=== PATIENT | female | born 1955 | race Caucasian/White ===

== ENCOUNTER 2025-02-19 11:04 | Outpatient (AMB) | payer MEDICARE, SELFPAY ==
--- NOTE | 2025-02-19 11:08 | A.OFFVIS_ITS ---
Intake Visit Reasons: Followup Allergies fentanyl (FENTANYL) Allergy (Severe, Unverified 04/07/20 17:21) SEIZURES hydromorphone (From Dilaudid) Allergy (Mild, Unverified 04/07/20 17:21) PYSCOTIC EPISODE morphine (Morphine) Allergy (Mild, Unverified 04/07/20 17:21) PSYCOTIC EPISODE HPI Comments Details: She tried hydroxyzine at bedtime for a few days which seemed to help and was able to sleep okay at night up until 1 week ago, having some trouble sleeping through the night. Having some anxiety which she describes as sense of fear and does not want to do anything. Triggers some headaches, uses butalbital as needed which helps. Having some issues with new office space. She has still not been able to find a therapist. She did EMDR in the past which helped and was interested in trying this again. Her 43-year-old son-in-law in sleep in 10/2024. Lack of sleep is trigger for depression. Has not been able to find therapist. She is only taking lorazepam when needed as she does not like how she feels the next day. Practicing sleep hygiene. She tried trazodone for sleep in the past with side effects. She was also dealing with body pains and was seeing first front ventilator. She had asked about low dose naltrexone, but was offered suboxone or Tramadol instead which she was not interested in. Feels memory concerns are related to anxiety. Has some trouble with word recall and says she has never been good with names. Lives alone, manages her own finances without any issues. Has a lot on her mind. 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 Lot of anxiety and dealing with some grief. Periods of shaking and crying. Her 15-year-old dog passed. She feels lonely. She has daughter with history of opioid use disorder who is to man with same history. She uses lorazepam sparingly for bad anxiety or if unable to sleep. She has history of depression since age 13 and had TMS before COVID. She also had EMDR therapy in the past. She is involved with her evangelical community and prays daily. She has tried multiple medications without results or side effects. Few migraines, uses butalbital as needed which helps. In 04/2024, she forgot to pay bills on 04/21 as she usually does, but paid it on 04/25. Stress makes word finding difficulties worse. Has never been good with names. 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 Depressed. Has tried many anti- depressants in the past with side effects. Alone for 20+ years. No real friends that are available. Sees senior animal trainer once a week. Doing behavior modification. Was concerned about AD and dementia, noting word searching difficulties. Migraines may occur for 2-3 weeks and then nothing for months. Feels tired. Butalbital helps left sided migraine. Neck pain since 10/[address] Ko. C spine shows degen disc disease without cord compression or HNP. Unable to tolerate any SSRIs, side effects with tricyclics. Tried amitriptyline, gabapentin, Cymbalta, and Lyrica with either no success or side effects. Also had bad side effects with Savella. Says she is sensitive to all antidepressants. Had neuropsych testing that was c/w severe depression. Had TMJ pain and clenches a lot. Cardiac work up negative. [facility] Medical History (Updated 02/19/25 @ 11:31 by Adia Teran, KADEN) Cerebral microvascular disease Chronic migraine w/o aura w/o status migrainosus, not intractable Chronic fatigue Seizure disorder Fibromyalgia Migraine Insomnia Results Reviewed Results Reviewed: 07/29/12 awake and sleep EEG WNL NCV/EMG UE 01/13/13 NORMAL MOTOR AND SENSORY NERVE CONDUCTION VELOCITIES IN THE UPPER EXTREMITIES. NORMAL EMG IN THE LEFT C5-T1 INNERVATED MUSCLES. 07/18/20 MRI brain shows minimal progression of microvascular changes and 6x9mm pineal cyst. EEG unremarkable. Assessment & Plan Assessment & Plan (1) Chronic migraine w/o aura w/o status migrainosus, not intractable: Code(s): G43.709 - Chronic migraine without aura, not intractable, without status migrainosus Category: Medical Plan: Continue [id number] [id number] 1 capsule as needed q8h for headache #20 for 30 days. (2) Insomnia: Code(s): G47.00 - Insomnia, unspecified Category: Medical Qualifiers: Insomnia type: unspecified Qualified Code(s): G47.00 - Insomnia, un specified Plan: Continue hydroxyzine 10mg 1/2 - 1 tablet as needed at bedtime (3) Anxiety: Code(s): F41.9 - Anxiety disorder, unspecified Category: Medical (4) Cerebral microvascular disease: Code(s): I67.89 - Other cerebrovascular disease Category: Medical (5) Fibromyalgia: Code(s): M79.7 - Fibromyalgia Category: Medical Plan For chronic migraine: has used multiple prophylactic meds and is intolerant to many including amitriptyline, gabapentin, topiramate, verapamil For FM tried: gabapentin, Lyrica, Cymbalta, Savella with side effects. Coding Level of Care Code Est Pt Level 4 (34924) Diagnoses Chronic migraine w/o aura w/o status migrainosus, not intractable G43.709 Insomnia, unspecified type G47.00 Insomnia type: unspecified Anxiety F41.9 Cerebral microvascular disease I67.89 Fibromyalgia M79.7
--- OUTSIDE RECORDS SUMMARY | 2025-02-19 11:13 | XMS_ITS | Clinical Summary ---
Author Organization [facility] Address [address] [place] [address] Care Team Providers Care It Portfolio Manager Name Role Phone Kiara Kerns MD Primary Care Provider [phone] Allergies Active Allergy Reactions Criticality Noted Date Comments Fentanyl Other (See Comments) High 10/09/2017 Hydromorphone Other (See Comments) High 10/09/2017 Post surgical psychosis Morphine Other (See Comments) High 10/09/2017 Post surgical pyschosis Medications Medication Sig Dispensed Refills Start Date End Date Status verapamil (CALAN-SR) 120 MG CR tablet Take by mouth. 0 Acti ve triazolam (HALCION) 0.25 MG tablet Take by mouth. 0 Active potassium chloride ER (K-DUR) 10 MEQ tablet Take by mouth. 0 Active montelukast (SINGULAIR) 5 MG chewable tablet Chew by mouth. 0 Activ e medroxyPROGESTERone (PROVERA) 10 MG tablet Take by mouth. 0 Active hydroCHLOROthiazide (HYDRODIURIL) 50 MG tablet Take by mouth. 0 Active cyclobenzaprine (FLEXERIL) 10 MG tablet Take by mouth. 0 Active clonazePAM (KLONOPIN) 0.5 MG tablet Take by mouth. 0 Active albuterol (PROAIR HFA) 108 (90 Base) MCG/ACT inhaler Inhale into the lungs. 0 Active Hospital, Clinic, or Other Facility Administered Medication Ordered Dose Route Frequency Start Date End Date Status methylPREDNISolone acetate (DEPO-MEDROL) injection 40 mgIndications:Shoulder impingement syndrome, left,Chronic left shoulder pain 40 mg IX Once 10/15/2017 Active Family History Medical History Relation Name Comments Heart disease Father Hypertension Father Heart disease Mother Hypertension Mother Relation Name Status Comments Father Mother Social History Tobacco Use Types Packs/Day Years Used Date Smoking Tobacco: Never Assessed Sex and Gender Information Value Date Recorded Sex Assigned at Not on file Gender Identity Not on file Sexual Orientation Not on file Job Start Date Occupation Industry Not on file Not on file Not on file Last Filed Vital Signs Vital Sign Reading Time Taken Comments Blood Pressure - - Pulse - - Temperature - - Respiratory Rate - - Oxygen Saturation - - Inhaled Oxygen Concentration - - Weight 68.9 kg (152 lb) 10/15/2017 9:13 AM EDT Height 162.6 cm (5' 4 ) 10/15/2017 9:13 AM EDT Body Mass Index 26.09 10/15/2017 9:13 AM EDT Plan of Treatment Health Maintenance Due Date Last Done Comments Hepatitis C Screening 1955 COVID-19 Vaccine (#1) 03/05/1956 Depression Screening 1965 Preventative Health Evaluation 1971 DTap / Tdap / Td (1 - Tdap) 1972 Colon Cancer Screening (Colonoscopy) 1998 Breast Cancer Screening (Mammogram) 2003 Shingrix-Zoster Vaccine (1 of 2) 2003 Fall Risk Assessment 2018 Osteoporosis Screening (DEXA Scan) 2018 Pneumococcal Vaccine (1 of 1 - PCV) 2018 Influenza Vaccine (#1) 2025 RSV Adult > 60+ Yrs or Pregn ant (1 - 1-dose 75+ series) 2028 Hepatitis B Vaccines Aged Out No long er eligible based on patient's age to complete this topic RSV Ped < 20 months Aged Out No longe r eligible based on patient's age to complete this topic Care Teams It Portfolio Manager Relationship Specialty Start Date End Date Kiara Kerns MD [address] [place] [address] PCP - General Family Medicine 08/19/17
--- OUTSIDE RECORDS SUMMARY | 2025-02-19 11:13 | XMS_ITS | Encounter Summary ---
Author Organization [facility], Address [address] [place] [address] Phone Care Team Providers Care Associate Product Integrity Engineer Name Role Phone Itzel Nagel DO Primary Care Pro vider Encounter Details Date Type Department Care Team (Late st Contact Info) Description 08/03/2021 Documentation Only [facility], [address] [place] [address] Adalberto Whtiaker MD [address] [place] [address] Social History Tobacco Use Types Packs/Day Years Used Date Smoking Tobacco: Never Alcohol Use Standard Drinks/Week Comments Never 0 (1 standard drink = 0.6 oz pur e alcohol) Comments Unknown Sex and Gender Information Value Date Recorded Sex Assigned at Not on file Legal Sex Female 5:00 PM EST Gender Identity Not on file Sexual Orientation Not on file Occupation Industry Job Start Date Job End Date Professor Not on file Not on file Not on file documented as of this encounter Plan of Treatment Not on file documented as of this encounter Visit Diagnoses Not on filedocumented in this encounter Care Teams Associate Product Integrity Engineer Relationship Specialty Start Date End Date Itzel Nagel DO PCP - General Internal Medicine 10/09/21 documented as of this encounter
--- OUTSIDE RECORDS SUMMARY | 2025-02-19 11:13 | XMS_ITS | Patient Health Record ---
Author Organization [facility] Address [address] [place] [address] Care Team Providers Care Cartography Technician Name Role Phone JERROD FIERRO Primary Care Provider [phone] Allergies Allergen (clinical drug ingredient) Drug/Non Drug Allergy documented on EMR Reaction Allergy Type Onset Date Status fentanyl Fentanyl Unknown Drug Allergy Active morphine Morphine Unknown Drug Allergy Active Substance with 6-alccdzz-1-methylgl utaryl-coenzyme A reductase inhibitor mechanism of action (substance) Statins muscle aches and pains Drug Allergy Active Results Component Value Reference Range Notes Comp. Metabolic Panel [id number] Reviewed date:10/01/2024 05:03:00 PM Interpretation: Performing Lab:[facility], [address] [facility], [place], Phone - [phone], Director - Sarai Notes/Report: Glucose 88 70-99 mg/dL BUN 17 8-27 mg/dL Creatinine 0.68 0.57-1.00 mg/dL eGFR 93 >59 mL/min/1.73 BUN/Creatinine Ratio 25 12-28 Sodium 140 134-144 mmol/L Potassium 4.1 3.5-5.2 mmol/L Chloride 101 96-106 mmol/L Carbon Dioxide, Total 23 20-29 mmol/L Calcium 9.9 8.7-10.3 mg/dL Protein, Total 6.9 6.0-8.5 g/dL Albumin 4.4 3.8-4.8 g/dL Globulin, Total 2.5 1.5-4.5 g/dL Bilirubin, Total 0.4 0.0-1.2 mg/dL Alkaline Phosphatase 93 44-121 IU/L AST (SGOT) 25 0-40 IU/L ALT (SGPT) 25 0-32 IU/L Lipid Panel-[id number] Reviewed date:10/01/2024 05:02:58 PM Interpretation: Performing Lab:[facility] [place], [address] [facility], Phone - [phone], Director - Sarai Notes/Report: Cholesterol, Total 181 100-199 mg/dL Triglycerides 58 0-149 mg/dL HDL Cholesterol 49 >39 mg/dL VLDL Cholesterol Heriberto 11 5-40 mg/dL LDL Chol Calc (NIH) 121 0-99 mg/dL Albumin/Creatinine Ratio,Uri ne-[id number] Reviewed date:10/01/2024 05:02:53 PM Interpretation: Performing Lab:[facility] [place], [address] [facility], [place], Phone - [phone], Director - Sarai Notes/Report: Creatinine, Urine TNP specimen for the requested testing. The following test(s) were not performed: Test not performed. Patient was unable to provide a self-collected Lipoprotein (a)-[id number] Reviewed date:10/01/2024 05:03:09 PM Interpretation: Performing Lab:[facility] [place], [address] [place] [address], Phone - [phone], Director - Sarai Notes/Report: Lipoprotein (a) 72.3 <75.0 nmol/L Note: Values greater than or equal to 75.0 nmol/L may indicate an independent risk factor for CHD, but must be evaluated with caution when applied to non- populations due to the influence of genetic factors on Lp(a) across ethnicities. Request Problem TNP Test not performed. Patient was unable to provide a self-collected specimen for the requested testing. The following test(s) were not performed: TEST: [id number] Albumin/Creatinine Ratio,Urine Reason For Referral Reason [facility]- for low infla mmatory diet Diagnosis 1 Gastro-esophageal re flux disease without esophagitis (K21.9) Referral Organization [facility] Referring Provider First Name JERROD Referring Provider Last Name SRI Referring Provider Speciality Internal M edicine Referred Provider Specialty Dietitian General Notes Referral faxed. Plea se call patient to schedule. Referral Priority Routine Medications Medication SIG (Take, Route, Frequency, Duration) Notes Start Date End Date Status Aspirin 81 MG 1 tablet Orally Once a day Active Albuterol Sulfate HFA 108 (9 0 Base) MCG/ACT 1 puff as needed Inhalation every 4 hrs Active valACYclovir HCl 500 MG 1 tablet Orally 2 TIMES A DAY; Duration: 10 days Active Ativan 0.5 MG 1 tablet at bedtime as needed Orally Once a day Active Butalbital-APAP prn Acti ve Losartan Potassium 25 mg 1 tablet Orally Once a day Active Cyclobenzaprine HCl 10 MG 1 tablet at be dtime as needed Orally Once a day; Duration: 30 days Active Zetia 10 MG 1 tablet Orally Once a day Active Verapamil HCl 120 MG 1 tablet Orally Thr ee times a day Active Problems Problem Type SNOMED Code ICD Code Onset Dates Problem Status W/U Status Risk Notes Problem Genital herpes simplex (18000613) Herpesviral infection of urogenital system, unspecified (A60.00) Active confirmed Problem Mixed hyperlipidemia (112028593) Mixed hyperlipidemia (E78.2) Active confirmed Problem Generalized anxiety disorder (12570585) Generalized anxiety disorder (F41.1) Active confirmed Problem Chronic migraine without aura, non-refractory (disorder) (998754714782306) Migraine without aura, not intractable, without status migrainosus (G43.009) Active confirmed Problem Insomnia (943107383) Insomnia, unspecified (G47.00) Active confirmed Problem Mild intermittent asthma (323946168) Mild intermittent asthma, uncomplicated (J45.20) Active confirmed Problem Gastro-esophageal reflux disease without esophagitis (039035960) Gastro-esophageal reflux disease without esophagitis (K21.9) Active confirmed Problem Polyarthritis (661953601) 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) Active confirmed Problem Fibromyalgia (453854769) Fibromyalgia (M79.7) Active confirmed Problem Heart murmur (finding) (61524363) Cardiac murmur, unspecified (R01.1) Active confirmed Problem Personal history of primary malignant neoplasm of breast (873891940) Personal history of malignant neoplasm of breast (Z85.3) Active confirmed Problem Essential hypertension (49063454) Essential (primary) hypertension (I10) Active confirmed Vital Signs Heart Rate 81 /min 10/07/2024 Temperature 96.1 degrees Fahrenheit 10/07/2024 Oximetry 99 % 10/07/2024 Blood pressure diastolic 70 mm Hg 10/07/2024 Height 5'3'' in 10/07/2024 Blood pressure systolic 140 mm Hg 10/07/2024 Weight 144.0 lbs 10/07/2024 BMI 25.51 kg/m2 10/07/2024 Encounters Encounter Location Date Provider Diagnosis [address] [address] 06/11/2024 JERROD FIERRO Essential (primary) hypertension I10 ; Mixed hyperlipidemia E78.2 ; Migraine without aura, not intractable, without status migrainosus G43.009 ; Gastro-esophageal reflux disease without esophagitis K21.9 ; Generalized anxiety disorder F41.1 ; Polyp of colon K63.5 ; Mild intermittent asthma, uncomplicated J45.20 ; Herpesviral infection of urogenital system, unspecified A60.00 ; Insomnia, unspecified G47.00 ; Other polyosteoarthritis M15.8 and Fibromyalgia M79.[address] [address] 10/07/2024 JERROD FIERRO Mixed hyperlipidemia E78.2 ; Essential (primary) hypertension I10 ; Migraine without aura, not intractable, without status migrainosus G43.009 ; Gastro-esophageal reflux disease without esophagitis K21.9 ; Generalized anxiety disorder F41.1 ; Polyp of colon K63.5 ; Mild intermittent asthma, uncomplicated J45.20 ; Herpesviral infection of urogenital system, unspecified A60.00 ; Insomnia, unspecified G47.00 ; Other polyosteoarthritis M15.8 and Fibromyalgia M79.[address] [address] 07/17/[address] [address] 07/30/[address] [address] 01/11/2025 JERROD FIERRO Assessments Encounter Date Diagnosis (ICD Code) Assessment Notes Treatment Notes Treatment Clinical Notes Section Notes 06/11/2024 Mixed hyperlipidemia (ICD-10 - E78.2) Ms Perea is 68 years old pleasant lady with hypertension, hyperlipidemia, GERD, generalized anxiety disorder/depres rafaela, migraine headaches, seizure disorder as a child, breast cancer and bilateral mastectomy, multiple joint osteoarthritis, herpes genitalia, fibromyalgia is here to establish care. Plan is as follows Hypertension. Blood pressure is well controlled on losartan 25 mg daily. Check renal functions, urine for microalbumin and electrolytes. Hyperlipidemia. She has extensive cardiac workup done by [facility] cardiology Dr. Zaragoza and she also had a second opinion from Dr. Costello at [facility]. She was started on Zetia 10 mg for hyperlipidemia because she could not tolerate statins. Mitral valve prolapse. She is stable at this point and to follow with cardiology. GERD. Continue on current regimen. Diet restrictions discussed Migraine headaches. They are pretty much well controlled and she is currently on verapamil 120 mg which helps with blood pressure and also with migraine headaches Mild persistent asthma/seasonal allergies. She uses albuterol inhaler as needed Generalized anxiety disorder/depres rafaela/insomnia. She uses lorazepam 0.5 mg sparingly as needed and according to patient she takes 3 tablets a month Herpes genitalia. She uses valacyclovir 500 mg. Multiple joint osteoarthritis. She follows up with orthopedics and recently had intra-articular injection in bilateral first metacarpal joints. Fibromyalgia. 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 She is up-to-date on health specific screening. Screening blood work ordered before next appointment. 06/11/2024 Essential (primary) hypertension (ICD-10 - I10) Ms Perea is 68 years old pleasant lady with hypertension, hyperlipidemia, GERD, generalized anxiety disorder/depres rafaela, migraine headaches, seizure disorder as a child, breast cancer and bilateral mastectomy, multiple joint osteoarthritis, herpes genitalia, fibromyalgia is here to establish care. Plan is as follows Hypertension. Blood pressure is well controlled on losartan 25 mg daily. Check renal functions, urine for microalbumin and electrolytes. Hyperlipidemia. She has extensive cardiac workup done by [facility] cardiology Dr. Zaragoza and she also had a second opinion from Dr. Costello at [facility]. She was started on Zetia 10 mg for hyperlipidemia because she could not tolerate statins. Mitral valve prolapse. She is stable at this point and to follow with cardiology. GERD. Continue on current regimen. Diet restrictions discussed Migraine headaches. They are pretty much well controlled and she is currently on verapamil 120 mg which helps with blood pressure and also with migraine headaches Mild persistent asthma/seasonal allergies. She uses albuterol inhaler as needed Generalized anxiety disorder/depres rafaela/insomnia. She uses lorazepam 0.5 mg sparingly as needed and according to patient she takes 3 tablets a month Herpes genitalia. She uses valacyclovir 500 mg. Multiple joint osteoarthritis. She follows up with orthopedics and recently had intra-articular injection in bilateral first metacarpal joints. Fibromyalgia. 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 She is up-to-date on health specific screening. Screening blood work ordered before next appointment. 10/07/2024 Mixed hyperlipidemia (ICD-10 - E78.2) Ms Perea is 68 years old pleasant lady with hypertension, hyperlipidemia, GERD, generalized anxiety disorder/depres rafaela, migraine headaches, seizure disorder as a child, breast cancer and bilateral mastectomy, multiple joint osteoarthritis, herpes genitalia, fibromyalgia is here for follow-up on blood work.. Plan is as follows Hypertension. Blood pressure is well controlled on losartan 25 mg daily. Check renal functions, urine for microalbumin and electrolytes. Hyperlipidemia. She has extensive cardiac workup done by [facility] cardiology Dr. Zaragoza and she also had a second opinion from Dr. Costello at [facility]. She was started on Zetia 10 mg for hyperlipidemia because she could not tolerate statins. Her LDL is 121 and it should be under 99. Mitral valve prolapse. She is stable at this point and to follow with cardiology. GERD. Continue on current regimen. Diet restrictions discussed Migraine headaches. They are pretty much well controlled and she is currently on verapamil 120 mg which helps with blood pressure and also with migraine headaches Mild persistent asthma/seasonal allergies. She uses albuterol inhaler as needed Generalized anxiety disorder/depres rafaela/insomnia. She uses lorazepam 0.5 mg sparingly as needed and according to patient she takes 3 tablets a month Herpes genitalia. She uses valacyclovir 500 mg. Multiple joint osteoarthritis. She follows up with orthopedics and recently had intra-articular injection in bilateral first metacarpal joints. Fibromyalgia. 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 She is up-to-date on health specific screening. Screening blood work reviewed and questions answered 10/07/2024 Essential (primary) hypertension (ICD-10 - I10) Ms Perea is 68 years old pleasant lady with hypertension, hyperlipidemia, GERD, generalized anxiety disorder/depres rafaela, migraine headaches, seizure disorder as a child, breast cancer and bilateral mastectomy, multiple joint osteoarthritis, herpes genitalia, fibromyalgia is here for follow-up on blood work.. Plan is as follows Hypertension. Blood pressure is well controlled on losartan 25 mg daily. Check renal functions, urine for microalbumin and electrolytes. Hyperlipidemia. She has extensive cardiac workup done by [facility] cardiology Dr. Zaragoza and she also had a second opinion from Dr. Costello at [facility]. She was started on Zetia 10 mg for hyperlipidemia because she could not tolerate statins. Her LDL is 121 and it should be under 99. Mitral valve prolapse. She is stable at this point and to follow with cardiology. GERD. Continue on current regimen. Diet restrictions discussed Migraine headaches. They are pretty much well controlled and she is currently on verapamil 120 mg which helps with blood pressure and also with migraine headaches Mild persistent asthma/seasonal allergies. She uses albuterol inhaler as needed Generalized anxiety disorder/depres rafaela/insomnia. She uses lorazepam 0.5 mg sparingly as needed and according to patient she takes 3 tablets a month Herpes genitalia. She uses valacyclovir 500 mg. Multiple joint osteoarthritis. She follows up with orthopedics and recently had intra-articular injection in bilateral first metacarpal joints. Fibromyalgia. 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 She is up-to-date on health specific screening. Screening blood work reviewed and questions answered 10/07/2024 Migraine without aura, not intractable, without status migrainosus (ICD-10 - G43.009) Ms Perea is 68 years old pleasant lady with hypertension, hyperlipidemia, GERD, generalized anxiety disorder/depres rafaela, migraine headaches, seizure disorder as a child, breast cancer and bilateral mastectomy, multiple joint osteoarthritis, herpes genitalia, fibromyalgia is here for follow-up on blood work.. Plan is as follows Hypertension. Blood pressure is well controlled on losartan 25 mg daily. Check renal functions, urine for microalbumin and electrolytes. Hyperlipidemia. She has extensive cardiac workup done by [facility] cardiology Dr. Zaragoza and she also had a second opinion from Dr. Costello at [facility]. She was started on Zetia 10 mg for hyperlipidemia because she could not tolerate statins. Her LDL is 121 and it should be under 99. Mitral valve prolapse. She is stable at this point and to follow with cardiology. GERD. Continue on current regimen. Diet restrictions discussed Migraine headaches. They are pretty much well controlled and she is currently on verapamil 120 mg which helps with blood pressure and also with migraine headaches Mild persistent asthma/seasonal allergies. She uses albuterol inhaler as needed Generalized anxiety disorder/depres rafaela/insomnia. She uses lorazepam 0.5 mg sparingly as needed and according to patient she takes 3 tablets a month Herpes genitalia. She uses valacyclovir 500 mg. Multiple joint osteoarthritis. She follows up with orthopedics and recently had intra-articular injection in bilateral first metacarpal joints. Fibromyalgia. 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 She is up-to-date on health specific screening. Screening blood work reviewed and questions answered 06/11/2024 Migraine without aura, not intractable, without status migrainosus (ICD-10 - G43.009) Ms Perea is 68 years old pleasant lady with hypertension, hyperlipidemia, GERD, generalized anxiety disorder/depres rafaela, migraine headaches, seizure disorder as a child, breast cancer and bilateral mastectomy, multiple joint osteoarthritis, herpes genitalia, fibromyalgia is here to establish care. Plan is as follows Hypertension. Blood pressure is well controlled on losartan 25 mg daily. Check renal functions, urine for microalbumin and electrolytes. Hyperlipidemia. She has extensive cardiac workup done by [facility] cardiology Dr. Zaragoza and she also had a second opinion from Dr. Costello at [facility]. She was started on Zetia 10 mg for hyperlipidemia because she could not tolerate statins. Mitral valve prolapse. She is stable at this point and to follow with cardiology. GERD. Continue on current regimen. Diet restrictions discussed Migraine headaches. They are pretty much well controlled and she is currently on verapamil 120 mg which helps with blood pressure and also with migraine headaches Mild persistent asthma/seasonal allergies. She uses albuterol inhaler as needed Generalized anxiety disorder/depres rafaela/insomnia. She uses lorazepam 0.5 mg sparingly as needed and according to patient she takes 3 tablets a month Herpes genitalia. She uses valacyclovir 500 mg. Multiple joint osteoarthritis. She follows up with orthopedics and recently had intra-articular injection in bilateral first metacarpal joints. Fibromyalgia. 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 She is up-to-date on health specific screening. Screening blood work ordered before next appointment. 06/11/2024 Gastro-esophageal reflux disease without esophagitis (ICD-10 - K21.9) Ms Perea is 68 years old pleasant lady with hypertension, hyperlipidemia, GERD, generalized anxiety disorder/depres rafaela, migraine headaches, seizure disorder as a child, breast cancer and bilateral mastectomy, multiple joint osteoarthritis, herpes genitalia, fibromyalgia is here to establish care. Plan is as follows Hypertension. Blood pressure is well controlled on losartan 25 mg daily. Check renal functions, urine for microalbumin and electrolytes. Hyperlipidemia. She has extensive cardiac workup done by [facility] cardiology Dr. Zaragoza and she also had a second opinion from Dr. Costello at [facility]. She was started on Zetia 10 mg for hyperlipidemia because she could not tolerate statins. Mitral valve prolapse. She is stable at this point and to follow with cardiology. GERD. Continue on current regimen. Diet restrictions discussed Migraine headaches. They are pretty much well controlled and she is currently on verapamil 120 mg which helps with blood pressure and also with migraine headaches Mild persistent asthma/seasonal allergies. She uses albuterol inhaler as needed Generalized anxiety disorder/depres rafaela/insomnia. She uses lorazepam 0.5 mg sparingly as needed and according to patient she takes 3 tablets a month Herpes genitalia. She uses valacyclovir 500 mg. Multiple joint osteoarthritis. She follows up with orthopedics and recently had intra-articular injection in bilateral first metacarpal joints. Fibromyalgia. 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 She is up-to-date on health specific screening. Screening blood work ordered before next appointment. 10/07/2024 Gastro-esophageal reflux disease without esophagitis (ICD-10 - K21.9) Ms Perea is 68 years old pleasant lady with hypertension, hyperlipidemia, GERD, generalized anxiety disorder/depres rafaela, migraine headaches, seizure disorder as a child, breast cancer and bilateral mastectomy, multiple joint osteoarthritis, herpes genitalia, fibromyalgia is here for follow-up on blood work.. Plan is as follows Hypertension. Blood pressure is well controlled on losartan 25 mg daily. Check renal functions, urine for microalbumin and electrolytes. Hyperlipidemia. She has extensive cardiac workup done by [facility] cardiology Dr. Zaragoza and she also had a second opinion from Dr. Costello at [facility]. She was started on Zetia 10 mg for hyperlipidemia because she could not tolerate statins. Her LDL is 121 and it should be under 99. Mitral valve prolapse. She is stable at this point and to follow with cardiology. GERD. Continue on current regimen. Diet restrictions discussed Migraine headaches. They are pretty much well controlled and she is currently on verapamil 120 mg which helps with blood pressure and also with migraine headaches Mild persistent asthma/seasonal allergies. She uses albuterol inhaler as needed Generalized anxiety disorder/depres rafaela/insomnia. She uses lorazepam 0.5 mg sparingly as needed and according to patient she takes 3 tablets a month Herpes genitalia. She uses valacyclovir 500 mg. Multiple joint osteoarthritis. She follows up with orthopedics and recently had intra-articular injection in bilateral first metacarpal joints. Fibromyalgia. 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 She is up-to-date on health specific screening. Screening blood work reviewed and questions answered 06/11/2024 Generalized anxiety disorder (ICD-10 - F41.1) Ms Perea is 68 years old pleasant lady with hypertension, hyperlipidemia, GERD, generalized anxiety disorder/depres rafaela, migraine headaches, seizure disorder as a child, breast cancer and bilateral mastectomy, multiple joint osteoarthritis, herpes genitalia, fibromyalgia is here to establish care. Plan is as follows Hypertension. Blood pressure is well controlled on losartan 25 mg daily. Check renal functions, urine for microalbumin and electrolytes. Hyperlipidemia. She has extensive cardiac workup done by [facility] cardiology Dr. Zaragoza and she also had a second opinion from Dr. Costello at [facility]. She was started on Zetia 10 mg for hyperlipidemia because she could not tolerate statins. Mitral valve prolapse. She is stable at this point and to follow with cardiology. GERD. Continue on current regimen. Diet restrictions discussed Migraine headaches. They are pretty much well controlled and she is currently on verapamil 120 mg which helps with blood pressure and also with migraine headaches Mild persistent asthma/seasonal allergies. She uses albuterol inhaler as needed Generalized anxiety disorder/depres rafaela/insomnia. She uses lorazepam 0.5 mg sparingly as needed and according to patient she takes 3 tablets a month Herpes genitalia. She uses valacyclovir 500 mg. Multiple joint osteoarthritis. She follows up with orthopedics and recently had intra-articular injection in bilateral first metacarpal joints. Fibromyalgia. 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 She is up-to-date on health specific screening. Screening blood work ordered before next appointment. 10/07/2024 Generalized anxiety disorder (ICD-10 - F41.1) Ms Perea is 68 years old pleasant lady with hypertension, hyperlipidemia, GERD, generalized anxiety disorder/depres rafaela, migraine headaches, seizure disorder as a child, breast cancer and bilateral mastectomy, multiple joint osteoarthritis, herpes genitalia, fibromyalgia is here for follow-up on blood work.. Plan is as follows Hypertension. Blood pressure is well controlled on losartan 25 mg daily. Check renal functions, urine for microalbumin and electrolytes. Hyperlipidemia. She has extensive cardiac workup done by [facility] cardiology Dr. Zaragoza and she also had a second opinion from Dr. Costello at [facility]. She was started on Zetia 10 mg for hyperlipidemia because she could not tolerate statins. Her LDL is 121 and it should be under 99. Mitral valve prolapse. She is stable at this point and to follow with cardiology. GERD. Continue on current regimen. Diet restrictions discussed Migraine headaches. They are pretty much well controlled and she is currently on verapamil 120 mg which helps with blood pressure and also with migraine headaches Mild persistent asthma/seasonal allergies. She uses albuterol inhaler as needed Generalized anxiety disorder/depres rafaela/insomnia. She uses lorazepam 0.5 mg sparingly as needed and according to patient she takes 3 tablets a month Herpes genitalia. She uses valacyclovir 500 mg. Multiple joint osteoarthritis. She follows up with orthopedics and recently had intra-articular injection in bilateral first metacarpal joints. Fibromyalgia. 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 She is up-to-date on health specific screening. Screening blood work reviewed and questions answered 06/11/2024 Polyp of colon (ICD-10 - K63.5) Ms Perea is 68 years old pleasant lady with hypertension, hyperlipidemia, GERD, generalized anxiety disorder/depres rafaela, migraine headaches, seizure disorder as a child, breast cancer and bilateral mastectomy, multiple joint osteoarthritis, herpes genitalia, fibromyalgia is here to establish care. Plan is as follows Hypertension. Blood pressure is well controlled on losartan 25 mg daily. Check renal functions, urine for microalbumin and electrolytes. Hyperlipidemia. She has extensive cardiac workup done by [facility] cardiology Dr. Zaragoza and she also had a second opinion from Dr. Cost[facility] at [facility]. She was started on Zetia 10 mg for hyperlipidemia because she could not tolerate statins. Mitral valve prolapse. She is stable at this point and to follow with cardiology. GERD. Continue on current regimen. Diet restrictions discussed Migraine headaches. They are pretty much well controlled and she is currently on verapamil 120 mg which helps with blood pressure and also with migraine headaches Mild persistent asthma/seasonal allergies. She uses albuterol inhaler as needed Generalized anxiety disorder/depres rafaela/insomnia. She uses lorazepam 0.5 mg sparingly as needed and according to patient she takes 3 tablets a month Herpes genitalia. She uses valacyclovir 500 mg. Multiple joint osteoarthritis. She follows up with orthopedics and recently had intra-articular injection in bilateral first metacarpal joints. Fibromyalgia. 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 She is up-to-date on health specific screening. Screening blood work ordered before next appointment. 10/07/2024 Polyp of colon (ICD-10 - K63.5) Ms Perea is 68 years old pleasant lady with hypertension, hyperlipidemia, GERD, generalized anxiety disorder/depres rafaela, migraine headaches, seizure disorder as a child, breast cancer and bilateral mastectomy, multiple joint osteoarthritis, herpes genitalia, fibromyalgia is here for follow-up on blood work.. Plan is as follows Hypertension. Blood pressure is well controlled on losartan 25 mg daily. Check renal functions, urine for microalbumin and electrolytes. Hyperlipidemia. She has extensive cardiac workup done by [facility] cardiology Dr. Zaragoza and she also had a second opinion from Dr. Costello at [facility]. She was started on Zetia 10 mg for hyperlipidemia because she could not tolerate statins. Her LDL is 121 and it should be under 99. Mitral valve prolapse. She is stable at this point and to follow with cardiology. GERD. Continue on current regimen. Diet restrictions discussed Migraine headaches. They are pretty much well controlled and she is currently on verapamil 120 mg which helps with blood pressure and also with migraine headaches Mild persistent asthma/seasonal allergies. She uses albuterol inhaler as needed Generalized anxiety disorder/depres rafaela/insomnia. She uses lorazepam 0.5 mg sparingly as needed and according to patient she takes 3 tablets a month Herpes genitalia. She uses valacyclovir 500 mg. Multiple joint osteoarthritis. She follows up with orthopedics and recently had intra-articular injection in bilateral first metacarpal joints. Fibromyalgia. 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 She is up-to-date on health specific screening. Screening blood work reviewed and questions answered 10/07/2024 Mild intermittent asthma, uncomplicated (ICD-10 - J45.20) Ms Perea is 68 years old pleasant lady with hypertension, hyperlipidemia, GERD, generalized anxiety disorder/depres rafaela, migraine headaches, seizure disorder as a child, breast cancer and bilateral mastectomy, multiple joint osteoarthritis, herpes genitalia, fibromyalgia is here for follow-up on blood work.. Plan is as follows Hypertension. Blood pressure is well controlled on losartan 25 mg daily. Check renal functions, urine for microalbumin and electrolytes. Hyperlipidemia. She has extensive cardiac workup done by [facility] cardiology Dr. Zaragoza and she also had a second opinion from Dr. Costello at [facility]. She was started on Zetia 10 mg for hyperlipidemia because she could not tolerate statins. Her LDL is 121 and it should be under 99. Mitral valve prolapse. She is stable at this point and to follow with cardiology. GERD. Continue on current regimen. Diet restrictions discussed Migraine headaches. They are pretty much well controlled and she is currently on verapamil 120 mg which helps with blood pressure and also with migraine headaches Mild persistent asthma/seasonal allergies. She uses albuterol inhaler as needed Generalized anxiety disorder/depres rafaela/insomnia. She uses lorazepam 0.5 mg sparingly as needed and according to patient she takes 3 tablets a month Herpes genitalia. She uses valacyclovir 500 mg. Multiple joint osteoarthritis. She follows up with orthopedics and recently had intra-articular injection in bilateral first metacarpal joints. Fibromyalgia. 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 She is up-to-date on health specific screening. Screening blood work reviewed and questions answered 06/11/2024 Mild intermittent asthma, uncomplicated (ICD-10 - J45.20) Ms Perea is 68 years old pleasant lady with hypertension, hyperlipidemia, GERD, generalized anxiety disorder/depres rafaela, migraine headaches, seizure disorder as a child, breast cancer and bilateral mastectomy, multiple joint osteoarthritis, herpes genitalia, fibromyalgia is here to establish care. Plan is as follows Hypertension. Blood pressure is well controlled on losartan 25 mg daily. Check renal functions, urine for microalbumin and electrolytes. Hyperlipidemia. She has extensive cardiac workup done by [facility] cardiology Dr. Zaragoza and she also had a second opinion from Dr. Costello at [facility]. She was started on Zetia 10 mg for hyperlipidemia because she could not tolerate statins. Mitral valve prolapse. She is stable at this point and to follow with cardiology. GERD. Continue on current regimen. Diet restrictions discussed Migraine headaches. They are pretty much well controlled and she is currently on verapamil 120 mg which helps with blood pressure and also with migraine headaches Mild persistent asthma/seasonal allergies. She uses albuterol inhaler as needed Generalized anxiety disorder/depres rafaela/insomnia. She uses lorazepam 0.5 mg sparingly as needed and according to patient she takes 3 tablets a month Herpes genitalia. She uses valacyclovir 500 mg. Multiple joint osteoarthritis. She follows up with orthopedics and recently had intra-articular injection in bilateral first metacarpal joints. Fibromyalgia. 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 She is up-to-date on health specific screening. Screening blood work ordered before next appointment. 06/11/2024 Herpesviral infectio n of urogenital system, unspecified (ICD-10 - A60.00) Ms Perea is 68 years old pleasant lady with hypertension, hyperlipidemia, GERD, generalized anxiety disorder/depres rafaela, migraine headaches, seizure disorder as a child, breast cancer and bilateral mastectomy, multiple joint osteoarthritis, herpes genitalia, fibromyalgia is here to establish care. Plan is as follows Hypertension. Blood pressure is well controlled on losartan 25 mg daily. Check renal functions, urine for microalbumin and electrolytes. Hyperlipidemia. She has extensive cardiac workup done by [facility] cardiology Dr. Zaragoza and she also had a second opinion from Dr. Costello at [facility]. She was started on Zetia 10 mg for hyperlipidemia because she could not tolerate statins. Mitral valve prolapse. She is stable at this point and to follow with cardiology. GERD. Continue on current regimen. Diet restrictions discussed Migraine headaches. They are pretty much well controlled and she is currently on verapamil 120 mg which helps with blood pressure and also with migraine headaches Mild persistent asthma/seasonal allergies. She uses albuterol inhaler as needed Generalized anxiety disorder/depres rafaela/insomnia. She uses lorazepam 0.5 mg sparingly as needed and according to patient she takes 3 tablets a month Herpes genitalia. She uses valacyclovir 500 mg. Multiple joint osteoarthritis. She follows up with orthopedics and recently had intra-articular injection in bilateral first metacarpal joints. Fibromyalgia. 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 She is up-to-date on health specific screening. Screening blood work ordered before next appointment. 10/07/2024 Herpesviral infectio n of urogenital system, unspecified (ICD-10 - A60.00) Ms Perea is 68 years old pleasant lady with hypertension, hyperlipidemia, GERD, generalized anxiety disorder/depres rafaela, migraine headaches, seizure disorder as a child, breast cancer and bilateral mastectomy, multiple joint osteoarthritis, herpes genitalia, fibromyalgia is here for follow-up on blood work.. Plan is as follows Hypertension. Blood pressure is well controlled on losartan 25 mg daily. Check renal functions, urine for microalbumin and electrolytes. Hyperlipidemia. She has extensive cardiac workup done by [facility] cardiology Dr. Zaragoza and she also had a second opinion from Dr. Costello at [facility]. She was started on Zetia 10 mg for hyperlipidemia because she could not tolerate statins. Her LDL is 121 and it should be under 99. Mitral valve prolapse. She is stable at this point and to follow with cardiology. GERD. Continue on current regimen. Diet restrictions discussed Migraine headaches. They are pretty much well controlled and she is currently on verapamil 120 mg which helps with blood pressure and also with migraine headaches Mild persistent asthma/seasonal allergies. She uses albuterol inhaler as needed Generalized anxiety disorder/depres rafaela/insomnia. She uses lorazepam 0.5 mg sparingly as needed and according to patient she takes 3 tablets a month Herpes genitalia. She uses valacyclovir 500 mg. Multiple joint osteoarthritis. She follows up with orthopedics and recently had intra-articular injection in bilateral first metacarpal joints. Fibromyalgia. 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 She is up-to-date on health specific screening. Screening blood work reviewed and questions answered 10/07/2024 Insomnia, unspecifie d (ICD-10 - G47.00) Ms Perea is 68 years old pleasant lady with hypertension, hyperlipidemia, GERD, generalized anxiety disorder/depres rafaela, migraine headaches, seizure disorder as a child, breast cancer and bilateral mastectomy, multiple joint osteoarthritis, herpes genitalia, fibromyalgia is here for follow-up on blood work.. Plan is as follows Hypertension. Blood pressure is well controlled on losartan 25 mg daily. Check renal functions, urine for microalbumin and electrolytes. Hyperlipidemia. She has extensive cardiac workup done by [facility] cardiology Dr. Zaragoza and she also had a second opinion from Dr. Costello at [facility]. She was started on Zetia 10 mg for hyperlipidemia because she could not tolerate statins. Her LDL is 121 and it should be under 99. Mitral valve prolapse. She is stable at this point and to follow with cardiology. GERD. Continue on current regimen. Diet restrictions discussed Migraine headaches. They are pretty much well controlled and she is currently on verapamil 120 mg which helps with blood pressure and also with migraine headaches Mild persistent asthma/seasonal allergies. She uses albuterol inhaler as needed Generalized anxiety disorder/depres rafaela/insomnia. She uses lorazepam 0.5 mg sparingly as needed and according to patient she takes 3 tablets a month Herpes genitalia. She uses valacyclovir 500 mg. Multiple joint osteoarthritis. She follows up with orthopedics and recently had intra-articular injection in bilateral first metacarpal joints. Fibromyalgia. 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 She is up-to-date on health specific screening. Screening blood work reviewed and questions answered 06/11/2024 Insomnia, unspecifie d (ICD-10 - G47.00) Ms Perea is 68 years old pleasant lady with hypertension, hyperlipidemia, GERD, generalized anxiety disorder/depres rafaela, migraine headaches, seizure disorder as a child, breast cancer and bilateral mastectomy, multiple joint osteoarthritis, herpes genitalia, fibromyalgia is here to establish care. Plan is as follows Hypertension. Blood pressure is well controlled on losartan 25 mg daily. Check renal functions, urine for microalbumin and electrolytes. Hyperlipidemia. She has extensive cardiac workup done by [facility] cardiology Dr. Zaragoza and she also had a second opinion from Dr. Costello at [facility]. She was started on Zetia 10 mg for hyperlipidemia because she could not tolerate statins. Mitral valve prolapse. She is stable at this point and to follow with cardiology. GERD. Continue on current regimen. Diet restrictions discussed Migraine headaches. They are pretty much well controlled and she is currently on verapamil 120 mg which helps with blood pressure and also with migraine headaches Mild persistent asthma/seasonal allergies. She uses albuterol inhaler as needed Generalized anxiety disorder/depres rafaela/insomnia. She uses lorazepam 0.5 mg sparingly as needed and according to patient she takes 3 tablets a month Herpes genitalia. She uses valacyclovir 500 mg. Multiple joint osteoarthritis. She follows up with orthopedics and recently had intra-articular injection in bilateral first metacarpal joints. Fibromyalgia. 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 She is up-to-date on health specific screening. Screening blood work ordered before next appointment. 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 Plan is as follows Hypertension. Blood pressure is well controlled on losartan 25 mg daily. Check renal functions, urine for microalbumin and electrolytes. Hyperlipidemia. She has extensive cardiac workup done by [facility] cardiology Dr. Zaragoza and she also had a second opinion from Dr. Costello at [facility]. She was started on Zetia 10 mg for hyperlipidemia because she could not tolerate statins. Mitral valve prolapse. She is stable at this point and to follow with cardiology. GERD. Continue on current regimen. Diet restrictions discussed Migraine headaches. They are pretty much well controlled and she is currently on verapamil 120 mg which helps with blood pressure and also with migraine headaches Mild persistent asthma/seasonal allergies. She uses albuterol inhaler as needed Generalized anxiety disorder/depres rafaela/insomnia. She uses lorazepam 0.5 mg sparingly as needed and according to patient she takes 3 tablets a month Herpes genitalia. She uses valacyclovir 500 mg. Multiple joint osteoarthritis. She follows up with orthopedics and recently had intra-articular injection in bilateral first metacarpal joints. Fibromyalgia. 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 She is up-to-date on health specific screening. Screening blood work ordered before next appointment. 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 Plan is as follows Hypertension. Blood pressure is well controlled on losartan 25 mg daily. Check renal functions, urine for microalbumin and electrolytes. Hyperlipidemia. She has extensive cardiac workup done by [facility] cardiology Dr. Zaragoza and she also had a second opinion from Dr. Costello at [facility]. She was started on Zetia 10 mg for hyperlipidemia because she could not tolerate statins. Her LDL is 121 and it should be under 99. Mitral valve prolapse. She is stable at this point and to follow with cardiology. GERD. Continue on current regimen. Diet restrictions discussed Migraine headaches. They are pretty much well controlled and she is currently on verapamil 120 mg which helps with blood pressure and also with migraine headaches Mild persistent asthma/seasonal allergies. She uses albuterol inhaler as needed Generalized anxiety disorder/depres rafaela/insomnia. She uses lorazepam 0.5 mg sparingly as needed and according to patient she takes 3 tablets a month Herpes genitalia. She uses valacyclovir 500 mg. Multiple joint osteoarthritis. She follows up with orthopedics and recently had intra-articular injection in bilateral first metacarpal joints. Fibromyalgia. 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 She is up-to-date on health specific screening. Screening blood work reviewed and questions answered 10/07/2024 Fibromyalgia (ICD-10 - M79.7) Ms Perea is 68 years old pleasant lady with hypertension, hyperlipidemia, GERD, generalized anxiety disorder/depres rafaela, migraine headaches, seizure disorder as a child, breast cancer and bilateral mastectomy, multiple joint osteoarthritis, herpes genitalia, fibromyalgia is here for follow-up on blood work.. Plan is as follows Hypertension. Blood pressure is well controlled on losartan 25 mg daily. Check renal functions, urine for microalbumin and electrolytes. Hyperlipidemia. She has extensive cardiac workup done by [facility] cardiology Dr. Zaragoza and she also had a second opinion from Dr. Costello at [facility]. She was started on Zetia 10 mg for hyperlipidemia because she could not tolerate statins. Her LDL is 121 and it should be under 99. Mitral valve prolapse. She is stable at this point and to follow with cardiology. GERD. Continue on current regimen. Diet restrictions discussed Migraine headaches. They are pretty much well controlled and she is currently on verapamil 120 mg which helps with blood pressure and also with migraine headaches Mild persistent asthma/seasonal allergies. She uses albuterol inhaler as needed Generalized anxiety disorder/depres rafaela/insomnia. She uses lorazepam 0.5 mg sparingly as needed and according to patient she takes 3 tablets a month Herpes genitalia. She uses valacyclovir 500 mg. Multiple joint osteoarthritis. She follows up with orthopedics and recently had intra-articular injection in bilateral first metacarpal joints. Fibromyalgia. 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 She is up-to-date on health specific screening. Screening blood work reviewed and questions answered 06/11/2024 Fibromyalgia (ICD-10 - M79.7) Ms Perea is 68 years old pleasant lady with hypertension, hyperlipidemia, GERD, generalized anxiety disorder/depres rafaela, migraine headaches, seizure disorder as a child, breast cancer and bilateral mastectomy, multiple joint osteoarthritis, herpes genitalia, fibromyalgia is here to establish care. Plan is as follows Hypertension. Blood pressure is well controlled on losartan 25 mg daily. Check renal functions, urine for microalbumin and electrolytes. Hyperlipidemia. She has extensive cardiac workup done by [facility] cardiology Dr. Zaragoza and she also had a second opinion from Dr. Costello at [facility]. She was started on Zetia 10 mg for hyperlipidemia because she could not tolerate statins. Mitral valve prolapse. She is stable at this point and to follow with cardiology. GERD. Continue on current regimen. Diet restrictions discussed Migraine headaches. They are pretty much well controlled and she is currently on verapamil 120 mg which helps with blood pressure and also with migraine headaches Mild persistent asthma/seasonal allergies. She uses albuterol inhaler as needed Generalized anxiety disorder/depres rafaela/insomnia. She uses lorazepam 0.5 mg sparingly as needed and according to patient she takes 3 tablets a month Herpes genitalia. She uses valacyclovir 500 mg. Multiple joint osteoarthritis. She follows up with orthopedics and recently had intra-articular injection in bilateral first metacarpal joints. Fibromyalgia. 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 She is up-to-date on health specific screening. Screening blood work ordered before next appointment. Plan Of Treatment Next Appt Details Provider Name:JERROD FIERRO , 04/07/2025 01:30:00 PM, [address] [place] [address], [id number], Insurance Providers Payer Name Payer Address Payer Phone Subscriber Number Group Number Insured Name Patient Relationship to Insured Coverage Start Date Coverage End Date [facility] [address] [place] [phone] [id number] Isabelle Perea Self - patient is the insured 2 Medical (General) History Medical History History ICD Code hypertension Hyperlipidemia Mild intermittent asthma/seasonal allerg ies Migraine headaches Seizure disorder as a child Multiple joint osteoarthritis Anxiety/depression Fibromyalgia triggered by stressful situ ations Breast cancer and status post mastectomy in 1999 mitral valve prolapse Surgical History Surgery Date(Month/Year) lumpectomy and status post radiation of breast 1999 bilateral mastectomy because of breast c kinzaer at [facility] 2003 Cholecystectomy Appendectomy Sinus surgery Right foot surgery Right hip replacement at [place] 2019 Left hip replacement July 2020 at [facility] Left shoulder replacement June 2022 at [facility]
--- OUTSIDE RECORDS SUMMARY | 2025-02-19 11:13 | XMS_ITS | Encounter Summary ---
Author Organization [facility] Address [address] [facility] [address] [place] [address] Phone Care Team Providers Care Grinding Wheel Facer Name Role Phone Kiara Kerns MD Primary Care Provider [phone] Encounter Details Date Type Department Care Team (Latest Contact Info) Description 06/06/2021 Transcribe Orders Virtual Department [address] [place] [address] Adalberto Whitaker MD [address] [facility] [address] [place] [address] [email or web address] Hypertension, unspecified type (Primary Dx) Social History Tobacco Use Types Packs/Day Years Used Date Smoking Tobacco: Never Smokeless Tobacco: Never Alcohol Use Standard Drinks/Week Comments No 0 (1 standard drink = 0.6 oz pur e alcohol) Comments Unknown Sex and Gender Information Value Date Recorded Sex Assigned at Not on file Legal Sex Female 11:35 AM EST Gender Identity Not on file Sexual Orientation Not on file documented as of this encounter Plan of Treatment Not on file documented as of this encounter Visit Diagnoses Diagnosis Hypertension, unspecified type- Primary documented in this encounter Care Teams Grinding Wheel Facer Relationship Specialty Start Date End Date Kiara Kerns MD [address] [place] [address] PCP - General 12/02/14 documented as of this encounter Additional Source Comments The information contained in this document represents components of the legal health record. It is not the complete legal health record.[facility]
--- OUTSIDE RECORDS SUMMARY | 2025-02-19 11:13 | XMS_ITS | Patient Health Record ---
Author Organization [facility] Address [address] [facility] [address] [place] [address] Care Team Providers Care Flight Engineer Manager Name Role Phone Abel Glover Primary Care Provider Unavailabl NELLY Ross Unavailable [phone] Allergies Allergen (clinical drug ingredient) Drug/Non Drug Allergy documented on EMR Reaction Allergy Type Onset Date Status fentanyl Fentanyl Unknown Drug Allergy Active morphine Morphine Unknown Drug Allergy Active Reason For Referral No Information Medications Medication SIG (Take, Route, Frequency, Duration) Notes Start Date End Date Status Amoxicillin 500 MG 1 tablet Orally two times a day; Duration: 5 days 09/16/2024 Not-Taking valACYclovir HCl 500 MG 1 tablet Orally Once a day Active Cyclobenzaprine HCl 10 MG 1 tablet at be dtime as needed Orally Once a day Active Urea 40 % 1 application as needed Externally 2-3 times a week; Duration: 30 days 09/16/2024 Active Albuterol Sulfate 108 (90 Base) MCG/ACT 1 puff as needed Inhalation every 4 hrs Active Aspirin 81 81 MG 1 tablet Orally Once a day Active Butalbital-APAP Acti ve Ativan 0.5 MG 1 tablet at bedtime as needed Orally Once a day Active Zetia 10 MG 1 tablet Orally Once a day Active Losartan Potassium 25 MG 1 tablet Orally Once a day Active Verapamil HCl 120 MG 1 tablet Orally Thr ee times a day Active Vital Signs Heart Rate 85 /min 09/30/2024 Patient decline d to be weighed today. Temperature 96.8 degrees Fahrenheit 09/30/2024 Wendi ent declined to be weighed today. Respiratory Rate 12 /min 09/30/2024 Patient dec lined to be weighed today. Height 5ft 3.5in in 09/30/2024 Patient decline d to be weighed today. Weight 148.2 lbs 09/16/2024 BMI 25.84 kg/m2 09/16/2024 Encounters Encounter Location Date Provider Diagnosis [facility] [address] 08/14/2024 NELLY PEÑA Paronychia of toe of left foot L03.032 ; Onychomycosis of toenail B35.1 and Pain in left toe(s) M79.675 [facility] [address] 09/16/2024 NELLY PEÑA Callus of toe L84 ; Onychomycosis of toenail B35.1 and Pain in left toe(s) M79.675 [facility] [address] 09/30/2024 NELLY PEÑA Onychomycosis of toenail B35.1 and Pain in left toe(s) M79.675 [facility] [address] 07/24/2024 NELLY PEÑA [facility] [address] 08/14/2024 NELLY PEÑA [facility] [address] 08/19/2024 NELLY PEÑA [facility] [address] 09/16/2024 NELLY PEÑA Assessments Encounter Date Diagnosis (ICD Code) Assessment Notes Treatment Notes Treatment Clinical Notes Section Notes 08/14/2024 Paronychia of toe of left foot (ICD-10 - L03.032) This is an outpatient visit for evaluation and management of a new patient, which required appropriate review of pertinent medical history, review of any previous imaging, review of all previous records, and examination and decision-making. Time was 40 minutes spent in review of all these facets including face to face discussion with the patient regarding my findings and in discussion of a current and future treatment plan. I discussed with the patient that it appears she had a retronychia of the left hallux nail base. We discussed this looks like it happened due to the loosening of the distal aspect of the left hallux toenail. This is likely to have been caused by the lifting the toenail. We discussed this caused the base of the nail to push into the skin. I believe this caused the skin infection. The skin infection appears to be resolved for now. We discussed treatment of the fungus. I reviewed with the patient various treatment methods for toenail fungus including: topical, oral, laser, and removal of the infected toenails. We discussed at this time the topical prescription may not be enough to prevent another recurrence. We discussed her sensitivities to medications. We discussed removal of the nail would ensure no further infection and help get rid of the fungus. I reviewed nail avulsions with the patient and also phenol/surgical matrixectomies. We discussed a total nail avulsion of the left big toenail. We discussed she would need to take the amoxicillin 500mg twice daily for 305 days, starting 24 hours before the procedure. We discussed the procedure in detail. We discussed she will need to keep the toe bandaged for about 2 weeks. I will have her follow up in 2 weeks to check the site, and if healed, we can start her on a topical antifungal to use for the first 3 months. She is in agreement with this plan. She would like to know her [id number] cost before proceeding with the procedure. I told the patient someone will contact her with the information, and then we will move forward with booking the procedure. 08/14/2024 Onychomycosis of toenail (ICD-10 - B35.1) 09/16/2024 Onychomycosis of toenail (ICD-10 - B35.1) I discussed with the patient that it appears she had a retronychia of the left hallux nail base. We discussed this looks like it happened due to the loosening of the distal aspect of the left hallux toenail. This is likely to have been caused by the lifting the toenail. We discussed this caused the base of the nail to push into the skin. I believe this caused the skin infection. The skin infection appears to be resolved for now. We discussed treatment of the fungus. I reviewed with the patient various treatment methods for toenail fungus including: topical, oral, laser, and removal of the infected toenails. We discussed at this time the topical prescription may not be enough to prevent another recurrence. We discussed her sensitivities to medications. We discussed removal of the nail would ensure no further infection and help get rid of the fungus. We discussed a total nail avulsion of the left big toenail. We discussed she would need to take the amoxicillin 500mg twice daily for 3-5 days, starting 24 hours before the procedure. We discussed the procedure in detail. Discussed a total nail avulsion procedure with the patient. The patient agreed to said procedure and consent was signed. As described above, a total nail avulsion of theleft hallux toenail was performed. Pt tolerated well. Post-procedure instructions were given to the patient. They are to remove the initial bandage 24hrs after the procedure. Bacitracin and band aid are to be applied to the toe for the next 7-14 days. We discussed she will need to keep the toe bandaged for about 2 weeks. I will have her follow up in 2 weeks to check the site, and if healed, we can start her on a topical antifungal to use for the first 3 months. She is in agreement with this plan. 09/16/2024 Callus of toe (ICD-10 - L84) She has a callus on the tip of the toe caused by toe position and shoe gear. I aseptically removed the callus from the toe. RX urea cream to use in the area 2-3 times a week to help with future callus build up. 09/30/2024 Onychomycosis of toenail (ICD-10 - B35.1) I discussed with the patient her nail bed is still healing. We discussed some pressure redness can be normal following the removal of the entire nail. We discussed swelling in the toe can last up to 2 months. I explained the new nail will take approximately 1 year to grow out. I recommended she stop using the antibiotic ointment daily, and allow the toe to breathe at night. She can continue to use a band-aid during the day after the nail bed has healed if the toe still feels sensitive. We discussed it may take an additional week for the nail bed to heal completely. I encouraged the patient to contact my office if she notices any issues while the toenail is growing out. She is in agreement with this plan. 08/14/2024 Pain in left toe(s) (ICD-10 - M79.675) 09/30/2024 Pain in left toe(s) (ICD-10 - M79.675) 09/16/2024 Pain in left toe(s) (ICD-10 - M79.675) Plan Of Treatment No Information Insurance Providers Payer Name Payer Address Payer Phone Subscriber Number Group Number Insured Name Patient Relationship to Insured Coverage Start Date Coverage End Date [employer] [address] [place] [address] [id number] Isabelle Perea Self - patient is the insured Medical (General) History Medical History History ICD Code hyperlipidemia hypertension mild intermittent asthma / seasonal waqas rgies migraine headaches seizure disorder as a child multiple joint osteoarthritis anxiety/depression fibromyalgia triggered by stressful situ ations breast cancer and status post mastectomy in 1999 mitral valve prolapse COVID vaccinated X 4 Surgical History Surgery Date(Month/Year) lumpectomy and status post radiation of breast 1999 bilateral mastectomy because of breast c ancer at [facility] 2003 cholecystectomy appendectomy sinus surgery right foot surgery right hip replacement in [place] 2019 left hip replacement at [facility] 07/2020 left shoulder replacement at [facility] 2 c-sections reconstruction of breast bilateral eye surgery 09/14/2024 Hospitalization History Reason Date(Month/Year) left hip replacement right hip replacement reconstruction of breast bilateral mastectomy lumpectomy appendectomy cholecystectomy 1982 1974
--- OUTSIDE RECORDS SUMMARY | 2025-02-19 11:13 | XMS_ITS | Clinical Summary ---
Author Organization [facility] [address] [facility] Address [address] [place] [address] Phone Care Team Providers Care Unit Clerk Name Role Phone Itzel Nagel DO Primary Care Pro vider Allergies Active Allergy Reactions Criticality Noted Date Comments Amlodipine Besylate 06/06/2006 Codeine 10/08/2018 Other Reaction(s): OTHER Sensitivity, not a true contraindication Fentanyl High 10/09/2017 Other Reaction(s): Other (See Comments) Hydrocodone-Acetamino phen Nausea And Vomiting 08/14/2023 Hydromorphone Nausea And Vomiting 08/14/2023 Lisinopril 06/06/2006 Morphine Sulfate High 06/06/2006 Other Reaction(s): OTHER Post surgical psychosis Soy Nausea And Vomiting 08/14/2023 Soy Isoflavone 05/01/2012 Tramadol 04/17/2022 Other Reaction(s): Rash/Dermatitis Medications pravastatin (PRAVACHOL) 10 mg tablet Sig - Route: Take 1 Tablet by mouth at bedtime. - Oral Active aspirin 81 mg EC tablet Take 1 Tablet by mouth daily. 4 Active rosuvastatin (CRESTOR) 5 mg tablet Take 1 Tablet by mouth at bedtime. 4 Active magnesium aspart,citrate,o xide (Triple Magnesium Complex) 400 mg magnesium capsule Take 1 Tablet by mouth daily. 4 Active losartan (COZAAR) 25 mg tablet Take 1 Tablet by mouth daily. At lunch time 3 Active cyclobenzaprine (FLEXERIL) 10 mg tablet Take 1 Tablet by mouth at bedtime as needed. Active valACYclovir (VALTREX) 500 mg tablet Take 1 Tablet by mouth daily. Active verapamil ER (VERELAN) 120 mg 24 hr capsule Take 1 Capsule by mouth at bedtime. 2 Active albuterol HFA (PROAIR HFA ; PROVENTIL HFA ; VENTOLIN HFA) 90 mcg/actuation inhaler INHALE 2 PUFFS EVERY 4 TO 6 HOURS NEEDED FOR COUGH, WHEEZE, OR SHORTNESS OF BREATH 9 Active butalbital-aceta minophen-caffein e (Esgic) 50-325-40 mg per tablet Si capsule 3 times daily as needed. Active esomeprazole (NexIUM) [address] capsuleIndicatio ns:Gastroesophag eal reflux disease, unspecified whether esophagitis present Take 1 capsule (40 mg total) by mouth 1 (one) time each day before breakfast. Do not open capsule. 30 each 11 5 10/07/19 26 Active Active Problems Problem Noted Date Diagnosed Date Chest pain 10/18/2023 Dizziness 10/18/2023 SOB (shortness of breath) 10/18/2023 Palpitations 04/18/2022 Arrhythmia 04/17/2022 MVP (mitral valve prolapse) 04/17/2022 PVC (premature ventricular contraction) 04/17/20 22 Overview (09/04/2024): PVCs noted by Holter monitor. Last Assessment & Plan: Current Holter does not suggest that increased burden of PVCs. She did have a short atrial run and I suspect most of her palpitations are due to PACs and short atrial runs. Her TSH was normal not that long ago. There is no underlying lung disease or other stimulants to avoid. I suggest that she might obtain the [employer] mobile device to be able to monitor these so that I can review them in the office if she has any more prolonged episodes. I reassured her that these are generally benign and she does not feel that she needs pharmacologic suppression. Syncope 04/17/2022 Overview (09/04/2024): Last Assessment & Plan: Recurrent syncope likely vasovagal in origin. She does have septal hypertrophy and I would like to get a stress echo to rule out outflow tract obstruction. She does not heed the warning signs when these occur and can respond accordingly. She is maintaining good hydration status. If these are more frequent in severity it might stop the hydrochlorothiazide. Vascular insufficiency 04/17/2022 Murmur 08/23/2020 Degenerative joint disease (DJD) of hip 05/26/20 Overview (09/04/2024): Now s/p b/l THRs GERD (gastroesophageal reflux disease) 0 Assessment & Plan (10/06/2024 10:38 AM EDT): Orders: esomeprazole (NexIUM) [address] capsule; Take 1 capsule (40 mg total) by mouth 1 (one) time each day before breakfast. Do not open capsule. Urinary incontinence 09/04/2019 Cervicalgia 08/15/2019 Overview (09/04/2024): [facility] Migraine 08/15/2019 Overview (09/04/2024): Dr Eisenberg Allergic rhinitis 01/14/2018 Arthritis 01/14/2018 Asthma 01/14/2018 Overview (09/04/2024): Dr. Fenton Depression 07/02/2017 Primary hypertension 04/10/2017 Overview (09/04/2024): Primary hypertension Last Assessment & Plan: Mildly elevated in the office today. Currently tolerating losartan, hydrochlorothiazide and verapamil. Continue a low-sodium diet regular exercise and avoidance of excessive caffeine, alcohol or NSAIDs. Fibromyalgia 02/26/2017 Irritable bowel syndrome 03/27/2016 Insomnia 06/09/2014 Genital herpes 05/10/2014 ADD (attention deficit disorder) 05/04/2014 Anxiety 10/20/2012 Overview (09/04/2024): Dr Lizama prescribing Bunion 08/03/2011 Immunizations Name Administration Dates Next Due Influenza trivalent, 0.5mL, preservative free (Fluarix; FluLaval; Fluzone) ages 6mo and older (Afluria) 3 years and older 08/02/2016,04/16/2012,06/02/2010 Influenza trivalent, with pr eservative (Fluzone; Afluria) 6mo and older 08/21/2017 Influenza, Unspecified 04/06/2020,05/07/2018 Pfizer SARS-CoV-2 COVID-19, mRNA, LNP-S, preservative free 09/12/2020,08/21/2020 Pneumococcal conjugate 13 va lent (Prevnar 13, PCV13) 2mo and older 04/14/2020 Surgical History Surgery Date Site/Laterality Comments MASTECTOMY Bilateral PROCEDURE: HISTORICAL MASTECTOMY; COMMENT: with breast reconstruction CATARACT EXTRACTION PROCEDURE: HISTORICAL CATARACT REMOVAL HIP ARTHROPLASTY Right PROCEDURE: HISTORICAL HIP REPLACEMENT SECTION PROCEDURE: HISTORICAL ; COMMENT: x2 CHOLECYSTECTOMY PROCEDURE: HISTORICAL CHOLECYSTECTOMY; COMMENT: open APPENDECTOMY PROCEDURE: HISTORICAL APPENDECTOMY; COMMENT: open OTHER SURGICAL HISTORY PROCEDURE: ---- OTHER ----; COMMENT: sinus surgery x2. OTHER SURGICAL HISTORY PROCEDURE: ---- OTHER ----; COMMENT: uterine suspension OTHER SURGICAL HISTORY PROCEDURE: ---- OTHER ----; COMMENT: laparoscopy for endometriosis. OTHER SURGICAL HISTORY Right PROCEDURE: ---- OTHER ----; COMMENT: bunion TONSILLECTOMY PROCEDURE: HISTORICAL TONSILLECTOMY; COMMENT: and adenoidectomy HIP ARTHROPLASTY 06/08/2020 Left PROCEDURE: HISTORICAL HIP REPLACEMENT; COMMENT: Dr. Rojas Moya BREAST LUMPECTOMY PROCEDURE: HISTORICAL BREAST LUMPECTOMY OTHER SURGICAL HISTORY 1972 PROCEDURE: LAP, SURG, RADFREQ ABLATION OF UTERINE FIBROID(S), INC INTRAOP GUIDE Medical History Medical History Date Comments Seasonal allergies DX:Seasonal a llergies Asthma, allergic DX:Asthma, waqas rgic Arthritis DX:Arthritis History of breast cancer DX:Hist ory of breast cancer History of migraine headaches DX :History of migraine headaches Fibromyalgia DX:Fibromyalgia Irritable bowel syndrome wit h constipation DX:Irritable bowel syndrome with constipation Stress incontinence DX:Stress in continence Raynaud's disease DX:Raynaud's d isease Herpes DX:Herpes Family History Medical History Relation Name Comments Coronary artery disease Brother 1 HTN, hyperchol Hypertension Brother 1 Coronary artery disease Brother 2 HTN, hyperchol Hypertension Brother 2 Coronary artery disease Brother 3 HTN, hyperchol Hypertension Brother 3 Alzheimer's disease Father Alcohol abuse Maternal Grandfather Stroke Maternal Grandmother Heart failure Mother CAD,HTN, Other: CVD Mother Alzheimer's disease Paternal Grandmother Diabetes Neg Hx Other cancer Neg Hx Relation Name Status Comments Brother 1 Alive Brother 2 Alive Brother 3 Alive Father Maternal Grandfather Maternal Grandmother Mother Paternal Grandfather Paternal Grandmother Social History Tobacco Use Types Packs/Day Years Used Date Smoking Tobacco: Never Smokeless Tobacco: Never Alcohol Use Standard Drinks/Week Comments No 0 (1 standard drink = 0.6 oz pur e alcohol) Comments Unknown Sex and Gender Information Value Date Recorded Sex Assigned at Not on file Legal Sex Female 12:26 AM EST Gender Identity Not on file Sexual Orientation Not on file Obstetrics History Last Filed Vital Signs Vital Sign Reading Time Taken Comments Blood Pressure 135/80 01/07/2024 2:10 PM EDT Sit ting L Arm Pulse 84 10/22/2023 11:10 AM EDT Temperature - - Respiratory Rate - - Oxygen Saturation - - Inhaled Oxygen Concentration - - Weight 64.9 kg (143 lb) 10/06/2024 10:14 AM EDT Height 162.6 cm (5' 4 ) 10/06/2024 10:14 AM EDT Body Mass Index 24.55 10/06/2024 10:14 AM EDT Plan of Treatment Health Maintenance Due Date Last Done Comments DTaP,Tdap,and Td Vaccines (1 - Tdap) 1972 Zoster Vaccines (1 of 2) 1972 RSV Immunization Adult Patients (1 - Risk 60-74 years 1-dose series) 2013 Colorectal Cancer Screening: Stool Based Tests (FOBT/FIT) 06/24/2022 Falls Risk Assessment 06/24/2022 Hepatitis C Screening 06/24/2022 Medicare Annual Wellness Visit 06/24/2022 Osteoporosis Screening (Bone Density Screening) 06/24/2022 Social Influencers of Health Screening 06/24/2022 Hypertension/CHF/CAD Annual BMP Blood Test 07/01/2022 05/08/2021 Cholesterol Screening (Lipid Panel) 05/20/2023 05/20/2018 COVID-19 Vaccine ( season) 2024 08/04/2023, 06/18/2021, 09/12/2020, Additional history exists Depression Screening 07/22/2024 Influenza Vaccine (#1) 2025 , 04/29/2023, 05/16/2022, Additional history exists Pneumococcal Vaccine: 50+ Years Completed 05/26/2023, 04/14/2020 HIB Vaccines Aged Out No longer eligi ble based on patient's age to complete this topic HPV Vaccines Aged Out No longer eligi ble based on patient's age to complete this topic Hepatitis A Vaccines Aged Out No long er eligible based on patient's age to complete this topic Hepatitis B Vaccines Aged Out No long er eligible based on patient's age to complete this topic IPV Vaccines Aged Out No longer eligi ble based on patient's age to complete this topic MMR Vaccines Aged Out No longer eligi ble based on patient's age to complete this topic Meningococcal ACWY Vaccine Aged Out N o longer eligible based on patient's age to complete this topic Meningococcal B Vaccine Aged Out No l onger eligible based on patient's age to complete this topic RSV Immunization Patients Under 20 months Aged Out No longer eligible based on patient's age to complete this topic Varicella Vaccines Aged Out No longer eligible based on patient's age to complete this topic Procedures Procedure Name Priority Date/Time Associated Diagnosis Comments ANNUAL BMP BLOOD TEST Routine 05/08/2021 LIPID PANEL Routine 05/20/2018 from Last 3 Months or Most Recently Relevant to Health Maintenance Results * Annual BMP Blood Test (05/08/2021) Pathologist [facility] Annual BMP Blood Test Abstracted Historical Provider HEALTH MAINTENANCE Final Result * (ABNORMAL) Lipid panel (05/20/2018) Pathologist [facility] LDL/HDL Ratio 5(A) 0 - 4 Triglycerides 59 0 - 150 mg/dL Cholesterol 194 0 - 200 mg/dL HDL 42 >=40 mg/dL LDL Cholesterol 141(A) 0 - 100 mg/dL Blood Venous blood specimen / Unknown Historical Provider LAB BLOOD ORDERABLES Ania l Result from Last 3 Months or Most Recently Relevant to Health Maintenance Insurance [employer] Care Teams Unit Clerk Relationship Specialty Start Date End Date Itzel Nagel DO [facility] [address] [place] [id number] PCP - General Internal Medicine 04/16/22
== END 2025-02-19 12:47 | disposition home or self-care (01) ==
LOC: HO.HSM 11:05
PROVIDERS: PCP Family Medicine; Visit Provider Registered Nurse
DX: G43.709 Chronic migraine without aura, not intractable, without status migrainosus (principal); G47.00 Insomnia, unspecified; F41.9 Anxiety disorder, unspecified; I67.89 Other cerebrovascular disease; M79.7 Fibromyalgia
CPT/HCPCS: 99214

== ENCOUNTER → 2025-02-19 11:04 | Outpatient (BNVA) | payer MEDICARE, SELFPAY | PROVIDERS: PCP Family Medicine; Visit Provider Registered Nurse | DX: G43.709 Chronic migraine without aura, not intractable, without status migrainosus (principal); G47.00 Insomnia, unspecified; F41.9 Anxiety disorder, unspecified; I67.89 Other cerebrovascular disease; M79.7 Fibromyalgia | CPT/HCPCS: 99212 ==